=== PATIENT | male | born 1955 | race Two or more races ===

== ENCOUNTER 2016-06-18 12:22 | Emergency (ER) | payer OTHER ==
[~2016-06-18] VITALS: Ht 170.2 cm; Wt 73.9 kg
--- NOTE | 2016-06-18 13:26 | PHYS DOC ---
Past Medical History Past Medical History: GERD, Hypertension, [place] Past Surgical History: Other Additional Past Surgical Histo: PTCA with stent-2004 Alcohol Use: None Drug Use: None Adult General Chief Complaint Chief Complaint: FACE PROBLEM HPI HPI Patient is a 60 year old male who presents with complaint of facial and penile swelling. Patient states that his symptoms started yesterday. Patient states that they have gradually worsened. Patient states that he has swelling to both upper and lower lips as well as the right side of his face just around his eye. Patient also noted that he has noticed swelling of the penile shaft area patient denies history of similar symptoms. Patient has history of hypertension and is currently on lisinopril therapy. Patient states that he has been on this medication since 2003. Patient also admits to history of coronary artery disease status post coronary stent placement. Patient states that he is having mild tightness but denies any sharp pain associated with the swelling. Patient has not had any associated fevers, tongue swelling, throat swelling, difficulty breathing, or vomiting. Review of Systems Review of Systems Constitutional: Denies fever or chills [] Eyes: Denies change in visual acuity, redness, or eye pain [] HENT: Facial swelling, denies nasal congestion or sore throat [] Respiratory: Denies cough or shortness of breath [] Cardiovascular: Denies chest pain or edema [] GI: Denies abdominal pain, nausea, vomiting, bloody stools or diarrhea [] : Penile swelling, denies dysuria or hematuria [] Musculoskeletal: Denies back pain or joint pain [] Integument: Denies rash or skin lesions [] Neurologic: Denies headache, focal weakness or sensory changes [] Current Medications Current Medications Current Medications Medications (Trade) Dose Ordered Sig/Floresita Start Time Stop Time Status Last Admin Dose Admin Diphenhydramine HCl (Benadryl) 25 mg 1X ONCE 06/18/16 13:45 06/18/16 13:46 DC 06/18/16 13:37 25 MG Famotidine 20 mg 20 mg 1X ONCE 06/18/16 13:45 06/18/16 13:46 DC 06/18/16 13:37 20 MG Methylprednisolone Sodium Succinate (Solu-Medrol 125mg Vial) 125 mg 1X ONCE 06/18/16 13:45 06/18/16 13:46 DC 06/18/16 13:37 125 MG Sodium Chloride (Iv Sodium Chloride 0.9% 1000ml Bag) 1,000 ml @ 100 mls/hr Q10H 06/18/16 13:45 06/18/16 15:56 DC 06/18/16 13:37 100 MLS/HR Allergies Allergies Allergies Coded Allergies Type Severity Reaction Last Updated Verified No Known Drug Allergies 05/17/14 No Physical Exam Physical Exam Constitutional: Alert, afebrile, no acute distress. [] HENT: Normocephalic, right-sided periorbital edema, swelling to upper and lower lip, no tongue swelling, bilateral external ears normal, oropharynx moist, no oral exudates, nose normal. [] Eyes: PERRLA, EOMI, conjunctiva normal, no discharge. [] Neck: Normal range of motion, no tenderness, supple, no stridor. [] Cardiovascular:Heart rate regular rhythm, no murmur [] Lungs & Thorax: Bilateral breath sounds clear to auscultation [] Abdomen: Bowel sounds normal, soft, no tenderness, no masses, no pulsatile masses. [] Skin: Warm, dry, no erythema, no rash. [] Back: No tenderness, no CVA tenderness. [] Extremities: No tenderness, no cyanosis, no clubbing, ROM intact, no edema. [] Neurologic: Alert and oriented X 3, normal motor function, normal sensory function, no focal deficits noted. [] Current Patient Data Vital Signs Vital Signs Date Time Temp Pulse Resp B/P Pulse Ox O2 Delivery O2 Flow Rate FiO2 06/18/16 15:19 68 14 117/71 97 06/18/16 13:19 Room Air 06/18/16 12:52 97.8 97.8 Lab Values Laboratory Tests Test 06/18/16 13:15 06/18/16 14:20 White Blood Count 9.0x10^3/uL (4.0-11.0) Red Blood Count 4.73x10^6/uL (4.30-5.70) Hemoglobin 13.4g/dL (13.0-17.5) Hematocrit 40.2% (39.0-53.0) Mean Corpuscular Volume 85fL (79-100) Mean Corpuscular Hemoglobin 28pg (25-35) Mean Corpuscular Hemoglobin Concent 33g/dL (31-37) Red Cell Distribution Width 12.5% (11.5-14.5) Platelet Count 251x10^3/uL (140-400) Neutrophils (%) (Auto) 77% (31-73) H Lymphocytes (%) (Auto) 15% (24-48) L Monocytes (%) (Auto) 6% (0-9) Eosinophils (%) (Auto) 1% (0-3) Basophils (%) (Auto) 1% (0-3) Neutrophils # (Auto) 6.9x10^3uL (1.8-7.7) Lymphocytes # (Auto) 1.4x10^3/uL (1.0-4.8) Monocytes # (Auto) 0.5x10^3/uL (0.0-1.1) Eosinophils # (Auto) 0.1x10^3/uL (0.0-0.7) Basophils # (Auto) 0.0x10^3/uL (0.0-0.2) Sodium Level 140mmol/L (136-145) Potassium Level 3.9mmol/L (3.5-5.1) Chloride Level 102mmol/L (98-107) Carbon Dioxide Level 30mmol/L (21-32) Anion Gap 8 (6-14) Blood Urea Nitrogen 16mg/dL (8-26) Creatinine 1.1mg/dL (0.7-1.3) Estimated GFR (Cockcroft-Gault) 68.5 BUN/Creatinine Ratio 15 (6-20) Glucose Level 110mg/dL (70-99) H Calcium Level 9.2mg/dL (8.5-10.1) Total Bilirubin 0.6mg/dL (0.2-1.0) Aspartate Amino Transferase (AST) 28U/L (15-37) Alanine Aminotransferase (ALT) 47U/L (16-63) Alkaline Phosphatase 127U/L (46-116) H Creatine Kinase 179U/L (39-308) Creatine Kinase MB (Mass) 1.4ng/mL (0.0-3.6) Creatine Kinase MB Relative Index 0.8% (0-4) Troponin I Quantitative < 0.017ng/mL (0.000-0.055) Total Protein 8.0g/dL (6.4-8.2) Albumin 4.1g/dL (3.4-5.0) Albumin/Globulin Ratio 1.1 (1.0-1.7) Urine Collection Type Unknown Urine Color Yellow Urine Clarity Clear Urine pH 6.0 Urine Specific Rillito <=1.005 Urine Protein Negativemg/dL (NEG-TRACE) Urine Glucose (UA) Negativemg/dL (NEG) Urine Ketones (Stick) Negativemg/dL (NEG) Urine Blood Negative (NEG) Urine Nitrite Negative (NEG) Urine Bilirubin Negative (NEG) Urine Urobilinogen Dipstick 0.2mg/dL (0.2 mg/dL) Urine Leukocyte Esterase Negative (NEG) Urine RBC 0/HPF (0-2) Urine WBC 0/HPF (0-4) Urine Bacteria 0/HPF (0-FEW) Urine Mucus Slight/LPF Laboratory Tests 06/18/16 13:15 Laboratory Tests 06/18/16 13:15 EKG EKG Interpreted by me: Heart rate 69, sinus rhythm, normal intervals, occasional PVC , no acute ST elevations or depressions [] Radiology/Procedures Radiology/Procedures Not performed [] Course & Med Decision Making Course & Med Decision Making Pertinent Labs and Imaging studies reviewed. (See chart for details) Patient was kept in the emergency department and started on IV Solu-Medrol, Pepcid, and Benadryl. Patient did not have any progression of swelling while in the emergency department over 2 hours. Patient's angioedema appears to be preseptal and patient is not displaying any signs of respiratory distress and no signs of throat or tongue swelling. I spoke with Dr. Gray who agreed with continuing patient on Medrol Dosepak. He also recommended the patient be changed to amlodipine 5 mg daily for treatment of blood pressure in the discontinue use of lisinopril at this time. Advised patient follow-up with Dr. Gray in 3-5 days and return to emergency department for any worsening symptoms. Patient was understanding and in agreement with treatment plan. Dragon Disclaimer Dragon Disclaimer This electronic medical record was generated, in whole or in part, using a voice recognition dictation system. Departure Departure Impression: Primary Impression: Angioedema Disposition: HOME, SELF-CARE Condition: STABLE Referrals: PHILIP GRAY MD (PCP) Patient Instructions: Angioedema Additional Instructions: Follow-up with Dr. Gray in the next 3-5 days. Discontinue use of lisinopril and continue on amlodipine daily as prescribed for blood pressure. Return to the emergency department for any worsening symptoms. Scripts Amlodipine Besylate 5 Mg Tablet5 Mg PO DAILY #30 TAB Prov:DAVID CLARK MD 06/18/16 Methylprednisolone (Medrol)4 Mg Tab.ds.pk1 Pkg PO UD #1 PKG Prov:DAVID CLARK MD 06/18/16 Problem Qualifiers Primary Impression: Angioedema Encounter type: initial encounter Qualified Code: T78.3XXA - Angioneurotic edema, initial encounter DAVID CLARK MD Jun 18, 2016 13:26
[2016-06-18 13:33] LABS: BASO % 1 % (0-3); EOS % 1 % (0-3); HEMATOCRIT 40.2 % (39.0-53.0); HEMOGLOBIN 13.4 g/dL (13.0-17.5); LYMPH # 1.4 x10^3/uL (1.0-4.8); LYMPH % 15 % (24-48); MEAN CORPUSCULAR HEMOGLOBIN 28 pg (25-35); MEAN CORPUSCULAR HGB CONC 33 g/dL (31-37); MEAN CORPUSCULAR VOLUME 85 fL (79-100); MONO % 6 % (0-9); NEUT % 77 % (31-73); PLATELET COUNT 251 x10^3/uL (140-400); RED BLOOD COUNT 4.73 x10^6/uL (4.30-5.70); RED CELL DISTRIBUTION WIDTH 12.5 % (11.5-14.5)
[2016-06-18] MEDS ORDERED: methylPREDNISolone SOD SUCC PF 125 MG/2 ML VIAL. IV ONE (13:45)
[2016-06-18] MEDS ORDERED: FAMOTIDINE 20 MG/2 ML VIAL IVP ONE (13:45)
[2016-06-18] MEDS ORDERED: IV NORMAL SALINE 1000ML BAG 1,000 ML IV SCH (13:45)
[2016-06-18] MEDS ORDERED: DIPHENHYDRAMINE 50 MG/ML VIAL. IV ONE (13:45)
[2016-06-18 13:53] LABS: CALCIUM 9.2 mg/dL (8.5-10.1); CREATININE 1.1 mg/dL (0.7-1.3); GFR 68.5; POTASSIUM 3.9 mmol/L (3.5-5.1)
[2016-06-18 13:58] LABS: ALBUMIN 4.1 g/dL (3.4-5.0); ALBUMIN/GLOBULIN RATIO 1.1 (1.0-1.7); TOTAL BILIRUBIN 0.6 mg/dL (0.2-1.0)
[2016-06-18 14:05] LABS: CKMB INDEX 0.8 % (0-4); CKMB MASS 1.4 ng/mL (0.0-3.6)
--- NOTE | 2016-06-18 14:26 | EKG ---
[facility] [address] [place] [address] Test Date: 2016-06-18 Test Time: 13:35:48 Pat Name: SANCHO SHEPHERD Department: Room: Gender: M Industrial Electrical Technician: : [id number] Requested By: DAVID CLARK Order Number: [id number] Reading MD: Measurements Intervals [place] Rate: 69 P: 56 MI: 162 QRS: 43 QRSD: 92 T: 75 QT: 410 QTc: 441 Interpretive Statements SINUS RHYTHM VENTRICULAR PREMATURE COMPLEX(ES) LOW LIMB LEAD VOLTAGE T ABNORMALITY IN HIGH LATERAL LEADS ABNORMAL ECG RI6.01 No previous ECG available for comparison
[2016-06-18 14:32] LABS: BILIRUBIN,URINE NEGATIVE (NEG); GLUCOSE,URINE NEGATIVE (NEG); NITRITE,URINE NEGATIVE (NEG); PROTEIN,URINE NEGATIVE (NEG-TRACE); UROBILINOGEN,URINE 0.2 mg/dL (0.2 mg/dL)
[2016-06-18 14:51] LABS: BACTERIA,URINE 0 /HPF (0-FEW); RBC,URINE 0 /HPF (0-2); WBC,URINE 0 /HPF (0-4)
[2016-06-18] MEDS ORDERED: AMLO5TAB2 PO (15:01)
[2016-06-18] MEDS ORDERED: METH4TAB2 PO (15:01)
[2016-06-18 15:19] VITALS: BP 117/71
== END 2016-06-18 15:45 | disposition home or self-care (01) ==
LOC: ER 12:22
DX: T78.3XXA Angioneurotic edema, initial encounter (principal); R22.0 Localized swelling, mass and lump, head; N48.89 Other specified disorders of penis; I11.9 Hypertensive heart disease without heart failure; I25.10 Atherosclerotic heart disease of native coronary artery without angina pectoris; K21.9 Gastro-esophageal reflux disease without esophagitis; I25.2 Old myocardial infarction; Z79.899 Other long term (current) drug therapy; Z95.5 Presence of coronary angioplasty implant and graft; Y84.8 Other medical procedures as the cause of abnormal reaction of the patient, or of later complication, without mention of misadventure at the time of the procedure; Y92.89 Other specified places as the place of occurrence of the external cause
CPT/HCPCS: 36415; 80053; 81001; 82553; 84484; 85027; 93005; 96361; 96374; 96375; 99285; J1200; J2930; J7030; S0028